=== PATIENT | male | born 1950 | race Caucasian/White ===

== ENCOUNTER 2018-03-18 10:00 | Day surgery (SDC) | payer MEDICARE ==
[~2018-03-18] VITALS: Ht 177.8 cm; Wt 53.0 kg
[2018-03-18 10:10] VITALS: BP 110/78
[2018-03-18] MEDS ORDERED: normal saline 1000ml 1,000 ML IV PRN (10:25)
[2018-03-18] MEDS ORDERED: NAPR-56 PO (10:53)
[2018-03-18] MEDS ORDERED: SULF1TAB48 PO (10:53)
[2018-03-18 10:56] LABS: ALBUMIN 3.3 G/DL (3.4-5.0); ANION GAP 13 (8-16); BLOOD UREA NITROGEN 51 MG/DL (7-18); CALCIUM 11.1 MG/DL (8.5-10.1); CHLORIDE 101 MMOL/L (99-107); CREATININE 1.38 MG/DL (0.60-1.10); GLUCOSE 121 MG/DL (70-104); SODIUM 135 MMOL/L (135-145); TOTAL CARBON DIOXIDE 21.4 MMOL/L (24-32); eGFR 51 ML/MIN
[2018-03-18] MEDS ORDERED: CEPH500C5 PO (11:01)
[2018-03-18] MEDS ORDERED: TUMERIC PO (11:01)
[2018-03-18] MEDS ORDERED: ASPI-13 PO (11:01)
[2018-03-18] MEDS ORDERED: IBUP-24 PO (11:01)
[2018-03-18] MEDS ORDERED: ASCO500C15 PO (11:01)
[2018-03-18] MEDS ORDERED: VITA-268 PO (11:01)
[2018-03-18] MEDS ORDERED: FA/M1TAB PO (11:01)
[2018-03-18] MEDS ORDERED: HYDR-4384 PO (11:01)
[2018-03-18] MEDS ORDERED: UBID100C16 PO (11:01)
[2018-03-18 11:23] LABS: BASOPHILS % (AUTO) 0.2 % (0-1); EOSINOPHILS # (AUTO) 0.2 X10'3 (0-0.9); EOSINOPHILS % (AUTO) 1.5 % (0-6); HEMOGLOBIN 13.5 g/dl (14.0-17.9); LYMPHOCYTES % (AUTO) 7.2 % (21-51); MEAN CORPUSCULAR HEMOGLOBIN 31.8 PG (27.0-31.0); MEAN CORPUSCULAR VOLUME 96.3 FL (78-98); MEAN PLATELET VOLUME 7.9 FL (7.4-10.4); MONOCYTES # (AUTO) 0.9 X10'3 (0-0.9); MONOCYTES % (AUTO) 6.8 % (2-12); NEUTROPHILS # (AUTO) 11.5 X10'3 (1.8-7.7); NEUTROPHILS % (AUTO) 84.3 % (42-75); PLATELET COUNT 429 X10'3 (140-440); RED BLOOD COUNT 4.26 X10'6 (4.70-6.10); RED CELL DISTRIBUTION WIDTH 13.8 % (11.5-14.5); WHITE BLOOD COUNT 13.6 X10'3 (4.5-11.0)
[2018-03-18] MEDS ORDERED: heparin sodium, porcine/PF 100unit/ml 5ML syringe ONE (11:46)
[2018-03-18] MEDS ORDERED: LIDOcaine 1% (10mg/ml) 2ml vial ONE ×2 (11:46)
[2018-03-18] MEDS ORDERED: midazolam 2 mg/2 ml injection IV PRN (11:50)
[2018-03-18] MEDS ORDERED: fentaNYL/PF 50MCG/1 ML 2ML syringe IV PRN (11:50)
[2018-03-18] MEDS ORDERED: heparin sodium, porcine/PF 100unit/ml 5ML syringe ICATH ONE (11:50)
[2018-03-18] MEDS ORDERED: fentaNYL/PF 50MCG/1 ML 2ML syringe ONE (12:03)
[2018-03-18] MEDS ORDERED: midazolam 2 mg/2 ml injection ONE (12:03)
[2018-03-18 12:30] VITALS: BP 99/65
[2018-03-18 12:45] VITALS: BP 104/67
[2018-03-18 13:00] VITALS: BP 103/71
[2018-03-18 13:15] VITALS: BP 110/55
[2018-03-18 13:30] VITALS: BP 117/63
== END 2018-03-18 13:50 | disposition home or self-care (01) ==
LOC: SSTAY O 10:00
PROVIDERS: ATTEND Radiology Vascular & Interventional Radiology
DX: C09.9 Malignant neoplasm of tonsil, unspecified (principal); F17.210 Nicotine dependence, cigarettes, uncomplicated; Z88.8 Allergy status to other drugs, medicaments and biological substances; Z98.890 Other specified postprocedural states
CPT/HCPCS: 36415; 36561; 76937; 77001; 80048; 85025; C1788; J1642; J2250; J3010; J3490; J7030; A6219; C1894